=== PATIENT | female | born 1990 | race Asian ===

== ENCOUNTER 2018-02-25 09:01 | Inpatient (IN) | payer SELFPAY ==
[~2018-02-25] VITALS: Ht 157.5 cm; Wt 66.2 kg
[2018-03-08] MEDS ORDERED: PROMETHAZINE 25 MG/ML VIAL IVP PRN (01:00)
[2018-03-08] MEDS ORDERED: OXYTOCIN 10 UNITS/ML VIAL IM ONE (01:00)
[2018-03-08] MEDS ORDERED: OXYTOCIN 20 UNITS in LACTATED RINGERS 1,000 ML IV SCH (01:00)
[2018-03-08] MEDS ORDERED: MISOPROSTOL 25 MCG TAB VG PRN (01:00)
[2018-03-08] MEDS ORDERED: METHYLERGONOVINE 0.2 MG/ML AMP IM PRN ×2 (01:00→16:50)
[2018-03-08 01:53] LABS: BASOPHILS # (AUTO) 0.1 K/uL (0.00-0.22); BASOPHILS % (AUTO) 0.8 % (0.0-2.0); EOSINOPHILS # (AUTO) 0.3 K/uL (0-0.4); EOSINOPHILS % (AUTO) 3.7 % (0.0-4.0); HEMATOCRIT 35.6 % (36-48); HEMOGLOBIN 12.2 g/dL (12.0-16.0); LYMPHOCYTES # (AUTO) 2.2 K/uL (2.5-16.5); LYMPHOCYTES % (AUTO) 28.4 % (20.5-51.1); MEAN CORPUSCULAR HEMOGLOBIN 33 pg (27-31); MEAN CORPUSCULAR HGB CONC 34 g/dL (33-37); MONOCYTES # (AUTO) 0.6 K/uL (0.8-1.0); MONOCYTES % (AUTO) 7.1 % (1.7-9.3); NEUTROPHILS # (AUTO) 4.7 K/uL (1.8-7.7); PLATELET COUNT (AUTO) 193 K/uL (140-450); RED BLOOD CELL COUNT(AUTO) 3.74 MIL/uL (4.20-5.40); RED CELL DISTRIBUTION WIDTH 13.4 % (11.6-13.7); WHITE BLOOD COUNT (AUTO) 7.9 K/uL (4.8-10.8)
[2018-03-08 01:56] LABS: APPEARANCE,URINE CLOUDY (CLEAR); BILIRUBIN,URINE NEGATIVE (NEGATIVE); BLOOD, URINE NEGATIVE (NEGATIVE); COLOR,URINE YELLOW (YELLOW); LEUKOCYTE ESTERASE ,URINE NEGATIVE (NEGATIVE); NITRITE, URINE NEGATIVE (NEGATIVE); UGLUCOSE NEGATIVE (NEGATIVE)
[2018-03-08] MEDS: LACTATED RINGERS 1,000 ML IV SCH ×3 (02:20→09:39)
[2018-03-08] MEDS ORDERED: MISOPROSTOL 25 MCG TAB ONE (02:36)
[2018-03-08] MEDS ORDERED: OSC500 PO (05:07)
[2018-03-08] MEDS ORDERED: PREN-546 PO (05:07)
[2018-03-08 05:10] VITALS: BP 109/62
[2018-03-08] MEDS ORDERED: BUPIVACAINE 0.125%/NS PREMIX 250 ML ONE (07:50)
--- NOTE | 2018-03-08 08:49 | NUR ---
PATIENT HAS BEEN SCREENED AND CATEGORIZED LOW NUTRITION RISK. PATIENT WILL BE SEEN WITHIN 7 DAYS OF ADMISSION. 03/14/[address]
[2018-03-08] MEDS ORDERED: OXYTOCIN 10 UNITS/ML VIAL ONE (13:04)
[2018-03-08] MEDS ORDERED: BENZOCAINE/MENTHOL 20%-0.5% 60 GM CAN TP PRN (16:50)
[2018-03-08] MEDS ORDERED: HYDROcodone/APAP 5/325 MG 1 TAB TAB PO PRN (16:50)
[2018-03-08] MEDS ORDERED: TEMAZEPAM 15 MG CAP PO PRN (16:50)
[2018-03-08] MEDS ORDERED: oxyCODONE/APAP 5/325 MG 1 TAB TAB PO PRN (16:50)
[2018-03-08] MEDS ORDERED: DOCUSATE SOD/SENNA 50/8.6 MG 1 TAB PO SCH (21:00)
[2018-03-09] MEDS: IBUPROFEN 800 MG TAB PO PRN ×3 (01:36→20:16)
[2018-03-09 06:31] LABS: HEMATOCRIT 29.8 % (36-48); HEMOGLOBIN 10.2 g/dL (12.0-16.0)
[2018-03-10] MEDS ORDERED: IBUP-1801 PO (08:10)
[2018-03-10] MEDS: IBUPROFEN 800 MG TAB PO PRN ×2 (08:37→16:24)
== END 2018-03-10 22:11 | disposition home or self-care (01) | DRG 775 ==
LOC: MLD 03-08 00:07 → MFCC 03-08 19:17
PROVIDERS: ADMIT Obstetrics & Gynecology; ATTEND Obstetrics & Gynecology
PROC: 10E0XZZ Delivery of Products of Conception, External Approach (ICD-10-PCS; principal; 2018-03-08)
PROC: 0KQM0ZZ Repair Perineum Muscle, Open Approach (ICD-10-PCS; 2018-03-08)
PROC: 10907ZC Drainage of Amniotic Fluid, Therapeutic from Products of Conception, Via Natural or Artificial Opening (ICD-10-PCS; 2018-03-08)
PROC: 00HU33Z Insertion of Infusion Device into Spinal Canal, Percutaneous Approach (ICD-10-PCS; 2018-03-08)
PROC: 3E0R3BZ Introduction of Anesthetic Agent into Spinal Canal, Percutaneous Approach (ICD-10-PCS; 2018-03-08)
PROC: 3E0234Z Introduction of Serum, Toxoid and Vaccine into Muscle, Percutaneous Approach (ICD-10-PCS; 2018-03-10)
DX: O48.0 Post-term pregnancy (principal); Z37.0 Single live birth; Z3A.40 40 weeks gestation of pregnancy; O70.1 Second degree perineal laceration during delivery; Z23 Encounter for immunization
CPT/HCPCS: 36415; 51702; 59200; 59409; 81003; 85018; 85025; 86592; 86886; 86900; 86901; 90715; J2590; J3490; J7120